=== PATIENT | female | born 1955 | race Native Hawaiian/Other Pacific Islander ===

== ENCOUNTER 2021-10-28 17:56 | Emergency (ER) | payer OTHER ==
[~2021-10-28] VITALS: Ht 167.6 cm; Wt 84.4 kg
[2021-10-28 18:08] VITALS: BP 200/89; TEMP 97
[2021-10-28 18:40] LABS: PLATELET COUNT 256 K/uL (152-353)
[2021-10-28 18:44] LABS: POTASSIUM 3.7 mmol/L (3.6-5.2)
[2021-10-28 18:53] LABS: PARTIAL THROMBOPLASTIN TIME 25.1 SECONDS (24.5-33.6)
== END 2021-10-28 19:45 | disposition home or self-care (01) ==
LOC: ED 17:56
PROVIDERS: Family Medicine
DX: M62.838 Other muscle spasm (principal); M25.512 Pain in left shoulder
CPT/HCPCS: 36415; 80053; 81002; 82550; 84484; 85027; 85610; 85730; 93005; 96374; 96375; 99284; J1885; J3360